=== PATIENT | male | born 1955 | race Caucasian/White ===

== ENCOUNTER → 2017-02-06 | Outpatient (CLI) | payer OTHER ==
[~2017-02-06] MED LIST: ALLEGRA ALLERGY60 MG PO; AMBIEN 10MG10 MG PO; AMITRIPTYLINE H10 M1 PO; ASTELIN NASAL S34 ML NS; AZULFIDINE500 MG/TAB PO; B COMPLEX #11 TA1 PO; CALCIUM500 MG PO; CELLCEPT 5500 MG/TAB PO; CLOBETASOL0.051 TP; COQ10150 MG PO; DIFLUCAN 100MG100 MG PO; FERROUS FUMARAT; IMURAN 50MG TAB50 MG PO; MILK OF MA400 MG/5 M PO; MOBIC15 MG PO; MULTIVITAMIN1 CTB; NASONEX SPRAY17 GM NS; NORCO 325 MG-51 TAB PO; NORVASC 10MG10 MG PO; OYSCO 500500 M1 PO; PLAQUENIL 200M200 MG PO; PREDNISONE10 MG PO; PRILOTC; PRILOTC PO; PROTOPIC0.1% TP; SINGULAIR 110 MG/TAB PO; TEMOVATE0.052 TOP; ULTRAM 50MG TAB50 MG PO; UREA TOP; VANICREAM TOP; VANICREAM1 CRE TP; VENTOLIN0.09 MG IH; VITAMIN D 1001000 IU PO; X VIATE 40% TP; XANAX .25M0.25 MG/TA PO; ZANTAC 150150 MG PO; ZYRTEC 10MG10 MG PO
== END ==
LOC: MHCPAIN 10:11
DX: G89.29 Other chronic pain (principal); M47.817 Spondylosis without myelopathy or radiculopathy, lumbosacral region; M54.16 Radiculopathy, lumbar region; M53.3 Sacrococcygeal disorders, not elsewhere classified
CPT/HCPCS: G0463

== ENCOUNTER → 2017-02-22 | Outpatient (CLI) | payer OTHER | LOC: MHCPAIN 07:54 | DX: M47.817 Spondylosis without myelopathy or radiculopathy, lumbosacral region (principal) | CPT/HCPCS: J1100; Q9967 ==

== ENCOUNTER 2017-03-09 08:45 | Outpatient (RCR) | payer OTHER | END 2017-04-30 | disposition home or self-care (01) | LOC: WSPT | DX: M54.16 Radiculopathy, lumbar region (principal); G89.29 Other chronic pain ==

== ENCOUNTER → 2017-03-23 | Outpatient (CLI) | payer OTHER | LOC: MHCPAIN 07:59 | DX: G89.29 Other chronic pain (principal); M47.817 Spondylosis without myelopathy or radiculopathy, lumbosacral region; M54.16 Radiculopathy, lumbar region; M53.3 Sacrococcygeal disorders, not elsewhere classified | CPT/HCPCS: G0463 ==

== ENCOUNTER 2020-09-28 08:47 | Inpatient (IN) | payer BC, MEDICARE ==
[2020-10-12] VITALS (9 sets, daily range): BP systolic 103–138; BP diastolic 64–74; PULSE 69–94; TEMP 97.9–98.5
[2020-10-12] MEDS ORDERED: NASACORT OTC NS (05:56)
[2020-10-12] MEDS ORDERED: ALLEGRA 180MG180 MG PO (05:58)
[2020-10-12] MEDS ORDERED: MAGNESIUM250 M1 PO (05:58)
[2020-10-12] MEDS ORDERED: EPA FISH OIL1 SGL PO (05:58)
[2020-10-12] MEDS ORDERED: PRIL40 PO (05:59)
[2020-10-12] MEDS ORDERED: FLOMAX 0.40.4 MG/CAP PO (05:59)
[2020-10-12] MEDS ORDERED: MELATIN 3 MG-11 TAB PO (05:59)
[2020-10-12] MEDS ORDERED: VITAMIND3 5000 PO (06:00)
[2020-10-12] MEDS ORDERED: TYLENOL 8 HR PO (06:00)
--- NOTE | 2020-10-12 06:30 | NUR ---
The patient ambulated back to [facility] independently using a steady gait and appeared to tolerate the activity well. Vital signs obtained. Consent signed. 18G IV started in right hand on second attempt, LR infusing without difficulty. Assessment completed and documented. Call light is within reach. The patient denies any further needs at this time. Will continue to monitor the patient.
--- NOTE | 2020-10-12 07:13 | NUR ---
The patient was taken to the OR via cart at this time. The patient's chart was sent with him to surgery. The patient's belongings were taken over to the recovery room and will be transferred with the patient up to the 3rd floor post operatively.
--- NOTE | 2020-10-12 20:00 | NUR ---
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 Assessment complete. VS stable. A&Ox3. Has been up ambulating in the hallways. Denies shortness of breath. Lap sites x5-edges well approximated. JASON drain with bright red fluid noted-25mls. Veloz cath with reddish output and small clots. Denies need for pain medication at this time. Tolerating PO. SCDs bilat. Plan of care discussed for this shift to include HS meds/pain meds/ERAS protocol/calling for questions/concerns. Verbalizes understanding/denies questions or concerns. Call light in reach. Will monitor.
--- NOTE | 2020-10-12 21:00 | NUR ---
Called with c/o pain and nausea. Rating pain 5/10 on pain scale-described as intermittent thorbbing to right side-tramadol given per dr order. Also given zofran for nausea. Will continue to monitor.
--- NOTE | 2020-10-12 23:00 | NUR ---
Resting eyes closed. No s/s of pain noted.
[2020-10-13 00:22] VITALS: BP 132/72; PULSE 98; TEMP 97.2
[2020-10-13 03:54] VITALS: BP 129/78; PULSE 77; TEMP 98
--- NOTE | 2020-10-13 04:41 | NUR ---
Called with c/o pain to abdomen. Rating pain 10/10 on pain scale-described as throbbing/sharp pains. States he wants to ambulate but cant until it is under control. Oxycodone given per dr order. Denies nausea. Call light in reach. Will monitor.
--- NOTE | 2020-10-13 05:46 | NUR ---
Did not rest much this shift. 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 Ambulated in hallways this shift several times. States oxycodone helped with pain. Seems more distended this am. Instructed to ambulate in hallways since pain is better. Dressing to drain saturated-leaking around tegaderm-changed at this time using drain sponge/tegaderm/medipore tape. Had a total of 100mls out of JASON for this shift. Tolerating PO. IV fluids continued over night due to decreased output. Denies current needs. Call light in reach. Will monitor.
--- NOTE | 2020-10-13 06:08 | NUR ---
Up ambulating in hallway. Tolerating well. Will continue to monitor.
[2020-10-13 06:35] LABS: HEMATOCRIT 44.3 % (42.0-52.0); HEMOGLOBIN 14.3 g/dl (13.5-18.0)
[2020-10-13 06:44] LABS: CREATININE, serum 1.14 (0.66-1.25); POTASSIUM 4.3 mmol/L (3.4-5.0)
[2020-10-13 07:42] VITALS: BP 137/75; PULSE 78; TEMP 97.7
--- NOTE | 2020-10-13 10:08 | NUR ---
Initial visit; Patient thanked Application Packaging Specialist for looking in on him and offering a blessing for his throat and body to heal thoroughly and rapidly. Application Packaging Specialist offered God's blessings as well.
--- NOTE | 2020-10-13 10:57 | NUR ---
Funeral Location Manager met with the patient to complete intake. The patient lives in [place] with his , David. The patient has a cane in case he needs it. The patient is independent. The patient's PCP is Dr. Wilkins and patient receives medications from [facility] [place]. The patient has advanced directives in the EMR. The patient plans to return home a discharge and has no concerns about doing so. David will provide transportation. There are no additional needs.
[2020-10-13 11:32] VITALS: BP 155/82; PULSE 80; TEMP 99.2
--- NOTE | 2020-10-13 14:20 | NUR ---
Veloz catheter care, bag changes reviewed with patient and spouse, verbalized understanding.
[2020-10-13 15:20] VITALS: BP 135/59; PULSE 75; TEMP 98
[2020-10-13 19:27] VITALS: BP 138/88; PULSE 73; TEMP 98.2
--- NOTE | 2020-10-13 20:50 | NUR ---
Pt. sitting up at bedside. Pt. is A&OX3, assessment complete. INT to rt. forearm patent. Pt. reports pain to abd. at a 6 on pain scale. Gave pain meds per orders. 5 abd. lap sites CDI. Pt. denies further needs, call light within reach.
[2020-10-14 03:52] VITALS: BP 147/90; PULSE 68; TEMP 97.9
--- NOTE | 2020-10-14 07:50 | NUR ---
Patient in bed resting. Alert and oriented x 3. assessment complete. States pain 6/10 to abdomen, medication given per orders. Veloz to DD with clear yellow urine present. SCDs to BLE. Previous JASON site with gauze and tegaderm is CDI. Lap sites with edges well approximated. Denies needs at this time.
[2020-10-14 08:09] VITALS: BP 159/92; PULSE 76; TEMP 98.2
[2020-10-14] MEDS ORDERED: ULTRAM 50MG TAB50 MG PO (08:28)
--- NOTE | 2020-10-14 09:30 | NUR ---
Discharge education provided to patient and spouse. Educated on trejo care and how to exchange bags. Educated on new medication and medication safety. Educated on when to call provier and follow up appointment. Patient and spouse demonstrated how to change out bags. All questions answered. Denies pain or further needs at this time. INT discontinued, catheter tip intact. Patien ambulated out with surgical staff.
== END 2020-10-14 09:30 | disposition home or self-care (01) | DRG 708 ==
LOC: INPTSU 10-12 05:26 → SURG 10-12 05:26
PROVIDERS: ADMIT Urology
PROC: 07BC4ZZ Excision of Pelvis Lymphatic, Percutaneous Endoscopic Approach (ICD-10-PCS; 2020-10-12)
PROC: 8E0W4CZ Robotic Assisted Procedure of Trunk Region, Percutaneous Endoscopic Approach (ICD-10-PCS; 2020-10-12)
PROC: 0VT04ZZ Resection of Prostate, Percutaneous Endoscopic Approach (ICD-10-PCS; principal; 2020-10-12 07:30)
DX: C61 Malignant neoplasm of prostate (principal); G47.33 Obstructive sleep apnea (adult) (pediatric); K21.9 Gastro-esophageal reflux disease without esophagitis; M19.90 Unspecified osteoarthritis, unspecified site; F32.9 Major depressive disorder, single episode, unspecified; J45.909 Unspecified asthma, uncomplicated; D64.9 Anemia, unspecified
CPT/HCPCS: A4314; A9284; J0690; J1100; J1200; J1885; J2405; J2704; J7120

== ENCOUNTER → 2020-12-03 | Outpatient (CLI) | payer BC ==
[~2020-12-03] MED LIST changes: +ALLEGRA 180MG180 MG PO; +CEPHALEXIN500 M1 PO; +COMPLETE MULTI1 TAB PO; +EPA FISH OIL1 SGL PO; +FLOMAX 0.40.4 MG/CAP PO; +FOLIC ACID 11 MG/TA1 PO; +MAGNESIUM250 M1 PO; +MELATIN 3 MG-11 TAB PO; +METHOTREXATE50/2 IJ; +NASACORT OTC NS; +PRIL40 PO; +TYLENOL 8 HR PO; +VITAMIND3 5000 PO
== END ==
LOC: COL.RAD 07:31
DX: C61 Malignant neoplasm of prostate (principal)
CPT/HCPCS: Q9967

== ENCOUNTER 2021-07-19 09:55 | Day surgery (SDC) | payer MEDICARE, BC ==
[~2021-07-19] VITALS: Ht 170.2 cm; Wt 93.8 kg
[~2021-07-19 09:55] MED LIST changes: -CEPHALEXIN500 M1 PO; -COMPLETE MULTI1 TAB PO; -FOLIC ACID 11 MG/TA1 PO; -METHOTREXATE50/2 IJ
[2021-07-19 10:13] VITALS: BP 164/99; PULSE 66; TEMP 97.4
[2021-07-19] MEDS ORDERED: XANAX .25M0.25 MG/TA PO (10:17)
[2021-07-19] MEDS ORDERED: FOLIC ACID 11 MG/TA1 PO (10:20)
[2021-07-19] MEDS ORDERED: METHOTREXATE50/2 IJ (10:21)
[2021-07-19] MEDS ORDERED: COMPLETE MULTI1 TAB PO (10:22)
[2021-07-19] MEDS ORDERED: CEPHALEXIN500 M1 PO (12:17)
[2021-07-19 12:45] VITALS: BP 151/84; PULSE 65; TEMP 97.7
--- NOTE | 2021-07-19 12:45 | NUR ---
Patient arrived back into [facility] following PACU. Report received from PACU, RNMagaly. Patient requesting toast, water, coffee, and sprite. States pain is tolerable at this time.
[2021-07-19 13:00] VITALS: BP 146/90; PULSE 60
--- NOTE | 2021-07-19 13:00 | NUR ---
Patient doing well. States pain is tolerable. Denies nausea/vomiting. And tolerated food and drink well.
[2021-07-19 13:15] VITALS: BP 146/87; PULSE 61
--- NOTE | 2021-07-19 13:15 | NUR ---
Patient reports doing well. Denies nausea/vomiting and states pain is tolerable.
[2021-07-19 13:24] VITALS: BP 151/84; PULSE 67
--- NOTE | 2021-07-19 13:30 | NUR ---
Patient got dressed. Notifed nursing staff about moderate amount of blood from urethra. Notified Dr. Cleveland who stated this was from urethral dilation. Let angelo and his know. Went through discharge instructions. Verbalized understanding to education. Questions answered. Pain tolerable. No complaint of nausea
--- NOTE | 2021-07-19 13:50 | NUR ---
Patient escorted to patient entrance with , David. Patient left in the care of his .
== END 2021-07-19 13:45 | disposition home or self-care (01) ==
LOC: SDCO 09:55
DX: T83.128A Displacement of other urinary devices and implants, initial encounter (principal); M06.9 Rheumatoid arthritis, unspecified; K21.9 Gastro-esophageal reflux disease without esophagitis; I10 Essential (primary) hypertension; J45.909 Unspecified asthma, uncomplicated; Z85.46 Personal history of malignant neoplasm of prostate; Z79.899 Other long term (current) drug therapy
CPT/HCPCS: J7120; Q9967

== ENCOUNTER 2022-06-30 05:54 | Day surgery (SDC) | payer MEDICARE, BC ==
[~2022-06-30] VITALS: Ht 170.2 cm; Wt 97.6 kg
[~2022-06-30 05:54] MED LIST changes: +CEPHALEXIN500 M1 PO; +COMPLETE MULTI1 TAB PO; +FOLIC ACID 11 MG/TA1 PO; +METHOTREXATE50/2 IJ
[2022-06-30 07:37] VITALS: BP 97/72; PULSE 66; TEMP 96.5
[2022-06-30 07:52] VITALS: BP 100/71; PULSE 57
[2022-06-30] MEDS ORDERED: ZYRTEC 10MG10 MG PO (13:19)
[2022-06-30] MEDS ORDERED: COZAAR100 MG PO (13:20)
[2022-06-30] MEDS ORDERED: HCTZ12.5TAB PO (13:21)
[2022-06-30 14:14] VITALS: BP 142/93; PULSE 72; TEMP 97.8
--- NOTE | 2022-06-30 15:34 | NUR ---
0724 Patient returns to [facility] via cart. Assist pt to recliner. Monitor attached. Cranberry juice given per pt request. Warm blanket given. Call light given to pt. 0752- VS rechecked. Monitor off. IV dc'd with cath intact. Site wrapped with coban. Discharge instructions given with verbal understanding. Pt up and time given to dress in own clothes. 0815- Discharged via w/c to private vehicle at patient entrance. Pt. dismissed in stable condition. Pt had folder with d/c papers in hand.
== END 2022-06-30 08:15 | disposition home or self-care (01) ==
LOC: SDCO 05:54
DX: Z12.11 Encounter for screening for malignant neoplasm of colon (principal); D12.5 Benign neoplasm of sigmoid colon; I10 Essential (primary) hypertension; K21.9 Gastro-esophageal reflux disease without esophagitis; Z87.891 Personal history of nicotine dependence
CPT/HCPCS: J2704; J3010; J7120